=== PATIENT | female | born 1955 | race African-American/Black ===

== ENCOUNTER 2017-01-13 17:28 | Observation (INO) | payer MEDICAID, OTHER ==
[2017-01-13] MEDS ORDERED: Sodium Chloride 0.9% 2.5 ML Syringe FLUSH PRN (17:40)
[2017-01-13] MEDS ORDERED: Sodium Chloride 0.9% 10 ML Syringe FLUSH PRN (17:40)
[2017-01-13] MEDS ORDERED: Alum Hydrox/Mag Hydrox/Simeth 15 ML, Metoclopramide 5 MG, Lidocaine 2% 5 ML PO ONE ×3 (17:40)
[2017-01-13] MEDS ORDERED: Pantoprazole 40 MG Vial IVPUSH ONE (17:40)
[2017-01-13] MEDS ORDERED: Aspirin 81 MG Tab.Chew PO ONE (17:40)
[2017-01-13] MEDS ORDERED: Nitroglycerin 0.4 MG Tab.SL SL ONE (17:40)
--- NOTE | 2017-01-13 17:46 | EDM.PDOC ---
<Chela Sawant - Last Filed: 01/13/17 18:48> ED HPI GENERAL MEDICAL PROBLEM - General Chief Complaint: Chest Pain Stated Complaint: CHEST PAIN Time Seen by Provider: 01/13/17 17:31 - History of Present Illness INITIAL COMMENTS - FREE TEXT/NARRATIVE: HISTORY AND PHYSICAL: History of present illness: The patient is a 61-old female with a history of pulmonary embolus bilaterally 2 years ago when she was living in [place] who is currently off anticoagulation therapy who is unsure of why she had the PE presents to the ED with lower midsternal chest pain that radiates up the sternum that started this morning. Patient said she had a normal day yesterday and slept fine and she woke up and the discomfort started. She says she rates it as a 5/10 and she feels like it's more indigestion and it causes her to belch a lot. The patient says she has had a history over the last year of having increased belching so that component is not necessarily new. She's not nauseated or vomiting and she did have some diarrhea this morning but it is not black or bloody. She has no history of GI problems she has no family history for cardiac disease and no social history. The patient does state that for over the last 3 months she has had issues with eating certain foods with getting right-sided discomfort belching and indigestion. She says is mostly with fatty foods. She has never had her gallbladder evaluated nor she ever had cardiac workup done. She states she has no significant medical history such as hypertension or diabetes. The patient states she has not had diaphoresis or shortness of breath with this chest discomfort and it does not radiate to either side or to her abdomen. She denies any specific epigastric discomfort. She says that the pain that she's been having on the right side of her abdomen is in the middle part not high or low Patient specific we says that does not feel like her PE pain that she has had in the past. The patient says she has been taking a lot of Tums for the belching over the last few weeks and did take some earlier prior to coming here. Review of systems: As per history of present illness and below otherwise all systems reviewed and negative. Past medical history: As per history of present illness and as reviewed below otherwise noncontributory. Surgical history: As per history of present illness and as reviewed below otherwise noncontributory. Social history: No reported history of drug or alcohol abuse. Family history: As per history of present illness and as reviewed below otherwise noncontributory. Physical exam: Gen.: Well-developed well-nourished female who is nontoxic and speaking clearly in the ED with numerous belching episodes on my evaluation. Her vital signs have been reviewed by me. HEENT: Atraumatic, normocephalic, pupils reactive, negative for conjunctival pallor or scleral icterus, mucous membranes moist, throat clear, neck supple, nontender, trachea midline. Lungs: Clear to auscultation, breath sounds equal bilaterally, chest nontender. Heart: S1S2, regular, negative for clicks, rubs, or JVD. Abdomen: Soft, nondistended, with some minimal tenderness on deep palpation at the mid right abdomen without rebound or guarding but no specific epigastric or right upper quadrant tenderness. Negative for masses or hepatosplenomegaly. Negative for costovertebral tenderness. Bowel sounds are hypoactive Pelvis: Stable nontender. Genitourinary: Deferred. Rectal: Deferred. Extremities: Atraumatic, negative for cords or calf pain. Neurovascular unremarkable. No pedal edema or leg asymmetry Neuro: Awake, alert, oriented. Cranial nerves II through XII unremarkable. Cerebellum unremarkable. Motor and sensory unremarkable throughout. Exam nonfocal. Skin: Normal turgor no evidence of any rashes or lesions and no diaphoresis Diagnostics: EKG CBC CMP amylase lipase INR troponin chest x-ray Therapeutics: IV O2 monitor aspirin nitroglycerin sublingual GI cocktail Protonix nitro paste 184: Due to some unforeseen delays with medication dosing the patient is only now getting her medications. She still continues to belch and we are currently awaiting her workup. I discussed with her the possibility that she may need to stay in the hospital even if all the tests are negative and she is very uneasy about that. She would like to wait for the test results to come back before having a discussion about admission. After the medication she says her discomfort is a 1 to [address] Nitrop[address]. 1846: I preemptively have discussed this case with Dr. Dominguez our hospitalist. I told him that she wanted to wait for all the labs to come back but he says that if she is agreeable for observation he will accept her as an observation for rule out and then address any GI issues. Impression: Chest pain with intractable belching rule out ACS, history of right-sided abdominal pain and fatty food intolerance rule out biliary colic Definitive disposition and diagnosis as appropriate pending reevaluation and review of above. Epigastric Pain Score (Numeric/FACES): 5 ED ROS GENERAL - Review of Systems Review Of Systems: ROS reveals no pertinent complaints other than HPI. ED EXAM, GENERAL - Physical Exam Exam: See Below (See dictation) Course - Vital Signs Last Recorded V/S: Last Vital Signs Temp 36.0 C 01/13/17 19:21 Pulse 66 01/13/17 19:21 Resp 18 01/13/17 19:21 BP 118/79 01/13/17 19:21 Pulse Ox 96 01/13/17 19:21 - Orders/Labs/Meds Orders: Active Orders 24 hr Category Date Time Status Cardiac Monitoring [RC] . DIRECTED Care 01/13/17 17:39 Active EKG Documentation Completion [RC] STAT Care 01/13/17 17:39 Active Pulse Oximetry [RC] ASDIRECTED Care 01/13/17 17:39 Active Chest 1V Frontal [CR] Stat Exams 01/13/17 17:40 Taken Sodium Chloride 0.9% [Saline Flush] Med 01/13/17 17:40 Active 10 ml FLUSH ASDIRECTED PRN Sodium Chloride 0.9% [Saline Flush] Med 01/13/17 17:40 Active 2.5 ml FLUSH ASDIRECTED PRN Saline Lock Insert [OM.PC] Stat Oth 01/13/17 17:39 Ordered Medication Orders Sodium Chloride (Saline Flush) 10 ml FLUSH ASDIRECTED PRN PRN Reason: Keep Vein Open Last Admin: 01/13/17 18:45 Dose: 10 ml Sodium Chloride (Saline Flush) 2.5 ml FLUSH ASDIRECTED PRN PRN Reason: Keep Vein Open Last Admin: 01/13/17 18:45 Dose: 2.5 ml Labs: Laboratory Tests 01/13/17 01/13/17 01/13/17 Range/Units 18:28 18:28 18:28 WBC 6.54 (4.0-11.0) K/uL RBC 4.26 L (4.30-5.90) M/uL Hgb 13.2 (12.0-16.0) g/dL Hct 39.8 (36.0-46.0) % MCV 93.4 (80.0-98.0) fL MCH 31.0 (27.0-32.0) pg MCHC 33.2 (31.0-37.0) g/dL RDW Std Deviation 44.5 (28.0-62.0) fl RDW Coeff of [place] 13 (11.0-15.0) % Plt Count 265 (150-400) K/uL MPV 9.80 (7.40-12.00) fL Neut % (Auto) 48.9 (48.0-80.0) % Lymph % (Auto) 40.7 H (16.0-40.0) % [place] % (Auto) 8.6 (0.0-15.0) % Eos % (Auto) 1.5 (0.0-7.0) % Baso % (Auto) 0.3 (0.0-1.5) % Neut # (Auto) 3.2 (1.4-5.7) K/uL Lymph # (Auto) 2.7 H (0.6-2.4) K/uL [place] # (Auto) 0.6 (0.0-0.8) K/uL Eos # (Auto) 0.1 (0.0-0.7) K/uL Baso # (Auto) 0.0 (0.0-0.1) K/uL Nucleated RBC % 0.0 /100WBC Nucleated RBCs # 0 K/uL INR 0.99 (0.86-1.11) Sodium 141 (136-146) mmol/L Potassium 4.2 (3.5-5.1) mmol/L Chloride 106 (98-110) mmol/L Carbon Dioxide 27 (21-31) mmol/L BUN 13 (6.0-23.0) mg/dL Creatinine 0.9 (0.6-1.5) mg/dL Est Cr Clr Drug Dosing 67.05 mL/min Estimated GFR (MDRD) > 60.0 ml/min Glucose 83 (60-110) mg/dL Calcium 9.6 (8.8-10.8) mg/dL Total Bilirubin 0.3 (0.1-1.5) mg/dL AST 23 (5-40) IU/L ALT 31 (8-54) IU/L Alkaline Phosphatase 67 (40-150) Troponin I (0.0-0.29) NG/ML Total Protein 8.2 H (6.0-8.0) g/dL Albumin 4.4 (3.4-4.8) g/dL Globulin 3.8 H (2.0-3.5) g/dL Albumin/Globulin Ratio 1.2 L (1.3-2.8) Amylase 152 H (10-90) U/L Lipase 27 (7-80) U/L 01/13/17 Range/Units 18:28 WBC (4.0-11.0) K/uL RBC (4.30-5.90) M/uL Hgb (12.0-16.0) g/dL Hct (36.0-46.0) % MCV (80.0-98.0) fL MCH (27.0-32.0) pg MCHC (31.0-37.0) g/dL RDW Std Deviation (28.0-62.0) fl RDW Coeff of [place] (11.0-15.0) % Plt Count (150-400) K/uL MPV (7.40-12.00) fL Neut % (Auto) (48.0-80.0) % Lymph % (Auto) (16.0-40.0) % [place] % (Auto) (0.0-15.0) % Eos % (Auto) (0.0-7.0) % Baso % (Auto) (0.0-1.5) % Neut # (Auto) (1.4-5.7) K/uL Lymph # (Auto) (0.6-2.4) K/uL [place] # (Auto) (0.0-0.8) K/uL Eos # (Auto) (0.0-0.7) K/uL Baso # (Auto) (0.0-0.1) K/uL Nucleated RBC % /100WBC Nucleated RBCs # K/uL INR (0.86-1.11) Sodium (136-146) mmol/L Potassium (3.5-5.1) mmol/L Chloride (98-110) mmol/L Carbon Dioxide (21-31) mmol/L BUN (6.0-23.0) mg/dL Creatinine (0.6-1.5) mg/dL Est Cr Clr Drug Dosing mL/min Estimated GFR (MDRD) ml/min Glucose (60-110) mg/dL Calcium (8.8-10.8) mg/dL Total Bilirubin (0.1-1.5) mg/dL AST (5-40) IU/L ALT (8-54) IU/L Alkaline Phosphatase (40-150) Troponin I < 0.10 (0.0-0.29) NG/ML Total Protein (6.0-8.0) g/dL Albumin (3.4-4.8) g/dL Globulin (2.0-3.5) g/dL Albumin/Globulin Ratio (1.3-2.8) Amylase (10-90) U/L Lipase (7-80) U/L Meds: Medications Generic Name Dose Route Start Last Admin Trade Name Freq PRN Reason Stop Dose Admin Sodium Chloride 10 ml 01/13/17 17:40 01/13/17 18:45 Saline Flush FLUSH 10 ml ASDIRECTED PRN Administration Keep Vein Open Sodium Chloride 2.5 ml 01/13/17 17:40 01/13/17 18:45 Saline Flush FLUSH 2.5 ml ASDIRECTED PRN Administration Keep Vein Open Discontinued Medications Generic Name Dose Route Start Last Admin Trade Name Freq PRN Reason Stop Dose Admin Aspirin 324 mg 01/13/17 17:40 01/13/17 18:31 Aspirin PO 01/13/17 17:41 324 mg ONETIME ONE Administration Al Hydroxide/Mg Hydroxide 15 0 ml 01/13/17 17:40 01/13/17 18:31 ml/ Metoclopramide HCl 5 mg/ PO 01/13/17 17:41 25 each Lidocaine HCl 5 ml ONETIME ONE Administration Nitroglycerin 0.4 mg 01/13/17 17:40 01/13/17 18:30 Nitrostat SL 01/13/17 17:41 0.4 mg ONETIME ONE Administration Nitroglycerin 0.5 gm 01/13/17 18:43 01/13/17 18:50 Nitro-Bid 2% TOP 01/13/17 18:44 0.5 gm ONETIME ONE Administration Pantoprazole Sodium 40 mg 01/13/17 17:40 01/13/17 18:31 Protonix Iv IVPUSH 01/13/17 17:41 40 mg .BOLUS ONE Administration Departure - Departure Disposition: Refer to Observation Condition: Good Clinical Impression: Belching Chest pain Qualifiers: Chest pain type: other chest pain Qualified Code(s): R07.89 - Other chest pain - Discharge Information Referrals: PCP,None [Primary Care Provider] - Forms: ED Department Discharge <Blair Win - Last Filed: 01/13/17 19:27> Departure - Departure Time of Disposition: 19:27
[2017-01-13] MEDS ORDERED: Nitroglycerin 2% Oint 1 GM UD Packet TOP ONE (18:43)
[2017-01-13 18:57] LABS: CHLORIDE,CL 106 mmol/L (98-110); SODIUM,NA 141 mmol/L (136-146)
[2017-01-13] MEDS ORDERED: Morphine 2 MG/ML Syringe IVPUSH PRN (20:57)
[2017-01-13] MEDS ORDERED: Acetaminophen 325 MG Tab PO PRN (20:57)
[2017-01-13] MEDS: Sodium Chloride 0.9% 1,000 ML IV SCH (21:18)
[2017-01-13] MEDS: oxyCODONE 5 MG Tab PO PRN (21:19)
[2017-01-14 05:51] LABS: CHLORIDE,CL 109 mmol/L (98-110); SODIUM,NA 143 mmol/L (136-146)
[2017-01-14] MEDS ORDERED: Pantoprazole 40 MG Tab.CR PO SCH (08:30)
--- NOTE | 2017-01-14 08:52 | PCM.HP ---
H&P History of Present Illness - General Date of Service: 01/14/17 Admit Problem/Dx: Admission Diagnosis/Problem Admission Diagnosis/Problem Chest pain Source of Information: Patient History Limitations: Reports: No Limitations - History of Present Illness Initial Comments - Free Text/Narative: The patient is a 61-year-old lady who presented to the emergency department yesterday evening with a concern for midsternal chest pain. The patient had described the pain is burning and has been relieved by belching. Pain does not radiate into her jaw or left arm. The patient had a history of pulmonary emboli 2 years ago and had been on anticoagulation for an appropriate time frame. The patient has had epigastric pain and she says it feels like a "bubble". The patient otherwise has no specific aggravating or relieving factors although she says some foods can irritate her stomach such as orange juice and spicy foods. The patient has no significant medical history other than the pulmonary emboli and she is not taking other medications chronically. She has been in her usual state of health up until the present time. Onset of Symptoms: Reports: Today Duration of Symptoms: Reports: Day(s): Location: Reports: Chest, Abdomen Quality: Reports: Burning, Throbbing Severity: Moderate Improves with: Reports: Medication Worsens with: Reports: Eating Associated Symptoms: Reports: No Other Symptoms Epigastric Pain Score (Numeric/FACES): 5 - Related Data Allergies/Adverse Reactions: Allergies Allergy/AdvReac Type Severity Reaction Status Date / Time No Known Allergies Allergy Verified 01/13/17 19:32 Home Medications: Home Meds Omeprazole 20 mg PO DAILY cap.cr 01/14/17 [Rx] Simethicone 80 mg PO TIDAC tab.chew 01/14/17 [Rx] Past Medical History HEENT History: Reports: Hard of Hearing Respiratory History: Reports: PE Other Respiratory History: bilat PE's Gastrointestinal History: Reports: Gastritis, GERD Genitourinary History: Reports: None ACCOUNT CONTACT ASSOCIATE History: Reports: Other OB/BYN History: Hysterectomy Musculoskeletal History: Reports: None Neurological History: Reports: None Psychiatric History: Reports: None Hematologic History: Reports: None Immunologic History: Reports: None - Infectious Disease History Infectious Disease History: Reports: Chicken Pox, Measles Other Infectious Disease History: possible measles - Past Surgical History Female Surgical History: Reports: Hysterectomy Social & Family History - Family History Family Medical History: Noncontributory - Tobacco Use Smoking Status *Q: Never Smoker Second Hand Smoke Exposure: No - Caffeine Use Caffeine Use: Reports: Soda - Recreational Drug Use Recreational Drug Use: No H&P Review of Systems - Review of Systems: Review Of Systems: See Below General: Reports: Weakness HEENT: Reports: No Symptoms Pulmonary: Reports: No Symptoms Cardiovascular: Reports: Chest Pain (Burning, pressure) Gastrointestinal: Reports: Abdominal Pain, Other (Belching) Genitourinary: Reports: No Symptoms Musculoskeletal: Reports: No Symptoms Skin: Reports: No Symptoms Psychiatric: Reports: No Symptoms Neurological: Reports: No Symptoms Hematologic/Lymphatic: Reports: No Symptoms Immunologic: Reports: No Symptoms Exam - Exam Exam: See Below - Vital Signs Vital Signs: Last Vital Signs Temp 36.6 C 01/14/17 05:43 Pulse 83 01/14/17 05:43 Resp 20 01/14/17 05:43 BP 143/80 H 01/14/17 05:43 Pulse Ox 100 01/14/17 05:43 Weight: 85.1 kg - Exam Quality Assessment: No: Supplemental Oxygen General: Alert, Oriented, Cooperative HEENT: Conjunctiva Clear, EACs Clear, Mucosa Moist & [place], Nares Patent Neck: Supple, Trachea Midline Lungs: Clear to Auscultation, Normal Respiratory Effort Cardiovascular: Regular Rate, Regular Rhythm GI/Abdominal Exam: Normal Bowel Sounds, Soft, No Distention, Tender (Epigastrium ) Back Exam: Normal Inspection Extremities: No Pedal Edema Skin: Warm, Dry Neurological: Cranial Nerves Intact Neuro Extensive - Mental Status: Alert, Oriented x3 Psychiatric: Alert, Normal Affect, Normal Mood - Patient Data Lab Results Last 24 hrs: Laboratory Results - last 24 hr 01/14/17 01/14/17 01/14/17 Range/Units 05:13 05:13 05:13 WBC 4.95 (4.0-11.0) K/uL RBC 3.92 L (4.30-5.90) M/uL Hgb 11.9 L (12.0-16.0) g/dL Hct 36.6 (36.0-46.0) % MCV 93.4 (80.0-98.0) fL MCH 30.4 (27.0-32.0) pg MCHC 32.5 (31.0-37.0) g/dL RDW Std Deviation 43.7 (28.0-62.0) fl RDW Coeff of [place] 13 (11.0-15.0) % Plt Count 261 (150-400) K/uL MPV 9.30 (7.40-12.00) fL Neut % (Auto) 38.2 L (48.0-80.0) % Lymph % (Auto) 49.3 H (16.0-40.0) % [place] % (Auto) 9.3 (0.0-15.0) % Eos % (Auto) 2.8 (0.0-7.0) % Baso % (Auto) 0.4 (0.0-1.5) % Neut # (Auto) 1.9 (1.4-5.7) K/uL Lymph # (Auto) 2.4 (0.6-2.4) K/uL [place] # (Auto) 0.5 (0.0-0.8) K/uL Eos # (Auto) 0.1 (0.0-0.7) K/uL Baso # (Auto) 0.0 (0.0-0.1) K/uL Nucleated RBC % 0.0 /100WBC Nucleated RBCs # 0 K/uL Sodium 143 (136-146) mmol/L Potassium 4.1 (3.5-5.1) mmol/L Chloride 109 (98-110) mmol/L Carbon Dioxide 27 (21-31) mmol/L BUN 11 (6.0-23.0) mg/dL Creatinine 0.8 (0.6-1.5) mg/dL Est Cr Clr Drug Dosing 75.44 mL/min Estimated GFR (MDRD) > 60.0 ml/min Glucose 90 (60-110) mg/dL Calcium 9.1 (8.8-10.8) mg/dL Total Bilirubin 0.6 (0.1-1.5) mg/dL AST 19 (5-40) IU/L ALT 25 (8-54) IU/L Alkaline Phosphatase 56 (40-150) Total Protein 6.9 (6.0-8.0) g/dL Albumin 3.7 (3.4-4.8) g/dL Globulin 3.2 (2.0-3.5) g/dL Albumin/Globulin Ratio 1.2 L (1.3-2.8) H. pylori IgG Antibody NEGATIVE (NEG) Result Diagrams: 01/14/17 05:13 01/14/17 05:13 *Q Meaningful Use (ADM) - VTE *Q VTE Criteria *Q: - VTE Risk Assess *Q Each Risk Factor Represents 1 Point: Serious Lung Disease Including Pneumonia, Less than 1 Month Total Score 1 Point Risk Factors: 1 Each Risk Factor Represents 2 Points: Age 60 - 74 Years Total Score 2 Point Risk Factors: 2 Each Risk Factor Represents 3 Points: History Superficial Venous Thrombosis, DVT or PE Total Score 3 Point Risk Factors: 3 - Stroke *Q Stroke Criteria *Q: - AMI *Q AMI Criteria *Q: - Problem List (1) GERD with esophagitis SNOMED Code(s): 343899421 ICD Code: K21.0 - GASTRO-ESOPHAGEAL REFLUX DISEASE WITH ESOPHAGITIS Status : Chronic Priority: High (2) Gastritis SNOMED Code(s): 4983761 ICD Code: K29.70 - GASTRITIS, UNSPECIFIED, WITHOUT BLEEDING Status: Acute Priority: High Qualifiers: Gastritis type: other gastritis (3) Chest pain SNOMED Code(s): 71006956 ICD Code: R07.9 - CHEST PAIN, UNSPECIFIED Status: Acute Qualifiers: Chest pain type: other chest pain Qualified Code(s): R07.89 - Other chest pain; R07.8 - Other chest pain Problem List Initiated/Reviewed/Updated: Yes Orders Last 24hrs: Active Orders 24 hr Category Date Time Status Admission Status [Patient Status] [ADT] Routine ADT 01/13/17 20:30 Active Telemetry Monitoring [Cardiac Monitoring] [RC] Q8H Care 01/13/17 20:54 Active Regular Diet [DIET] Diet 01/14/17 Breakfast Active Abdomen Ltd [US] Routine Exams 01/14/17 08:30 Ordered Acetaminophen [Tylenol] Med 01/13/17 20:57 Active 650 mg PO Q6H PRN Morphine Med 01/13/17 20:57 Active 2 mg IVPUSH Q4H PRN Pantoprazole [ProTONIX] Med 01/14/17 08:30 Active 40 mg PO ACBREAKFAST Sodium Chloride 0.9% [Normal Saline] 1,000 ml Med 01/13/17 21:00 Active IV ASDIRECTED oxyCODONE Med 01/13/17 20:57 Active 5 mg PO Q4H PRN Medication Orders Acetaminophen (Tylenol) 650 mg PO Q6H PRN PRN Reason: Headache/mild pain Sodium Chloride (Normal Saline) 1,000 mls @ 75 mls/hr IV ASDIRECTED [facility] Last Admin: 01/13/17 21:18 Dose: 75 mls/hr Morphine Sulfate (Morphine) 2 mg IVPUSH Q4H PRN PRN Reason: Pain (severe 7-10) Oxycodone HCl (Oxycodone) 5 mg PO Q4H PRN PRN Reason: Pain (moderate 4-6) Last Admin: 01/13/17 21:19 Dose: 5 mg Pantoprazole Sodium (Protonix) 40 mg PO ACBREAKFAST [facility] Last Admin: 01/14/17 08:41 Dose: 40 mg Sodium Chloride (Saline Flush) 10 ml FLUSH ASDIRECTED PRN PRN Reason: Keep Vein Open Last Admin: 01/13/17 18:45 Dose: 10 ml Sodium Chloride (Saline Flush) 2.5 ml FLUSH ASDIRECTED PRN PRN Reason: Keep Vein Open Last Admin: 01/13/17 18:45 Dose: 2.5 ml Assessment/Plan Comment:: The patient is a 61-year-old lady who was admitted primarily out of concern for chest pain which was thought to be atypical. The patient says that the pain started suddenly yesterday. The patient does have a history of pulmonary emboli and had been treated for this in [place]. The patient does not have any shortness of breath. The patient apparently had been treated for the PE with anticoagulation and had been taken off of the anticoagulation and she had no further problem with this. Today he has described her chest pain in the middle of her chest, not radiating and described as burning or acid like. The patient has had no specific aggravating or but she has said that she's been belching very often and this actually relieves some of the pain that she is having. The patient has not been taking any chronic medications. She has been in her usual state of health up until the present time. And as a result of this the patient will be admitted to observation. She will have serial troponins done. Patient will be placed on proton pump inhibitor. Her pain will be controlled with use of morphine as necessary. The patient will be monitored and if she has improved significantly she will be appropriate for discharge home in the morning.
[2017-01-14] MEDS: oxyCODONE 5 MG Tab PO PRN (08:57)
[2017-01-14] MEDS: Sodium Chloride 0.9% 1,000 ML IV SCH (10:26)
--- NOTE | 2017-01-14 10:33 | CR ---
EXAM DATE: 01/13/17 PATIENT'S AGE: 61 Patient: RADHIKA SPENCE Facility: [place], [place] Site . Site : [id number] Study: XRay Chest [id number]/7/2017 7:10:09 PM Ordering Physician: Jese York Final Report: Indication: Chest pain Technique: Chest 1 view Comparison: None Findings/Impression: Cardiovascular and mediastinum: Borderline cardiomegaly which could be partially related to the AP technique. Lungs and pleural space: Lungs are clear. No sign of infiltrate or mass. No sign of pleural effusion. No pneumothorax. Bones and soft tissues: Thoracic scoliosis. Dictated by Med Ma MD @ 01/13/2017 7:42:57 PM Dictated by: Med Ma MD @ 01/13/2017 19:43:04 (Electronic Signature) Report Signed by Proxy. MODESTO
--- NOTE | 2017-01-14 16:02 | US ---
EXAMINATION: Right upper quadrant ultrasound HISTORY: Biliary colic COMPARISON: None TECHNIQUE: Grayscale and color Doppler images obtained of the right upper quadrant. FINDINGS: The visualized pancreas appears normal. The gallbladder wall thickness is normal. No perich olecystic fluid or shadowing gallstones. The common bile duct measures 3%. The right kidney measures 9.2 cm [id number] without evidence of hydronephrosis. Negative sonographic Landa[place]de sign. IMPRESSION: 1. Grossly unremarkable right upper quadrant ultrasound.
[2017-01-14 17:11] VITALS: BP 132/77
[2017-01-14] MEDS ORDERED: Simethicone 80 MG Tab.Chew PO SCH (17:30)
--- NOTE | 2017-01-14 17:58 | PCM.DCSUM1 ---
Discharge Summary - Hospital Course Free Text/Narrative:: The patient was admitted secondary to atypical chest pain. - Discharge Data Discharge Date: 01/14/17 Discharge Disposition: Home, Self-Care 01 Condition: Good - Discharge Diagnosis/Problem(s) (1) Belching SNOMED Code(s): 617987113 ICD Code: R14.2 - ERUCTATION Status: Acute (2) Chest pain SNOMED Code(s): 91691990 ICD Code: R07.9 - CHEST PAIN, UNSPECIFIED Status: Acute Qualifiers: Chest pain type: other chest pain Qualified Code(s): R07.89 - Other chest pain; R07.8 - Other chest pain - Patient Summary/Data Hospital Course: The patient is a 61-year-old lady who was admitted primarily out of concern for chest pain which was thought to be atypical. The patient says that the pain started suddenly yesterday. The patient does have a history of pulmonary emboli and had been treated for this in [place]. The patient does not have any shortness of breath. The patient apparently had been treated for the PE with anticoagulation and had been taken off of the anticoagulation and she had no further problem with this. Today he has described her chest pain in the middle of her chest, not radiating and described as burning or acid like. The patient has had no specific aggravating or but she has said that she's been belching very often and this actually relieves some of the pain that she is having. The patient has not been taking any chronic medications. She has been in her usual state of health up until the present time. And as a result of this the patient will be admitted to observation. She will have serial troponins done. Patient will be placed on proton pump inhibitor. Her pain will be controlled with use of morphine as necessary. The patient will be monitored and if she has improved significantly she will be appropriate for discharge home in the morning.The patient has had a workup which has consisted of monitoring, serial troponins and she had been treated with a proton pump inhibitor which seems to have helped her. The patient will be discharged home with a prescription for Nexium 40 mg by mouth daily as well as a prescription for simethicone. I've recommended that the patient continue with with her plan for diet and exercise. She been discharged with a diet as tolerated. The patient will also follow-up with primary care physician as scheduled. - Patient Instructions Diet: Heart Healthy Diet ([place]) - Discharge Plan Home Medications: Home Meds Omeprazole 20 mg PO DAILY cap.cr 01/14/17 [Rx] Simethicone 80 mg PO TIDAC tab.chew 01/14/17 [Rx] Patient Handouts: Heartburn, [id number], Chest Wall Pain, [id number], Simethicone chewable tablets, Omeprazole tablets (OTC) Referrals: Rajinder Dominguez DO [Physician] - 01/25/17 11:00 am - Patient Data Vitals - Most Recent: Last Vital Signs Temp 36.7 C 01/14/17 17:10 Pulse 60 01/14/17 17:10 Resp 16 01/14/17 17:10 BP 132/77 01/14/17 17:10 Pulse Ox 98 01/14/17 17:10 Weight - Most Recent: 85.1 kg I&O - Last 24 hours: Intake & Output 01/14/17 01/14/17 01/14/17 06:59 14:59 22:59 Intake Total 360 1632 Output Total 950 1150 Balance -590 482 Lab Results - Last 24 hrs: Laboratory Results - last 24 hr 01/14/17 01/14/17 01/14/17 Range/Units 05:13 05:13 05:13 WBC 4.95 (4.0-11.0) K/uL RBC 3.92 L (4.30-5.90) M/uL Hgb 11.9 L (12.0-16.0) g/dL Hct 36.6 (36.0-46.0) % MCV 93.4 (80.0-98.0) fL MCH 30.4 (27.0-32.0) pg MCHC 32.5 (31.0-37.0) g/dL RDW Std Deviation 43.7 (28.0-62.0) fl RDW Coeff of [place] 13 (11.0-15.0) % Plt Count 261 (150-400) K/uL MPV 9.30 (7.40-12.00) fL Neut % (Auto) 38.2 L (48.0-80.0) % Lymph % (Auto) 49.3 H (16.0-40.0) % [place] % (Auto) 9.3 (0.0-15.0) % Eos % (Auto) 2.8 (0.0-7.0) % Baso % (Auto) 0.4 (0.0-1.5) % Neut # (Auto) 1.9 (1.4-5.7) K/uL Lymph # (Auto) 2.4 (0.6-2.4) K/uL [place] # (Auto) 0.5 (0.0-0.8) K/uL Eos # (Auto) 0.1 (0.0-0.7) K/uL Baso # (Auto) 0.0 (0.0-0.1) K/uL Nucleated RBC % 0.0 /100WBC Nucleated RBCs # 0 K/uL Sodium 143 (136-146) mmol/L Potassium 4.1 (3.5-5.1) mmol/L Chloride 109 (98-110) mmol/L Carbon Dioxide 27 (21-31) mmol/L BUN 11 (6.0-23.0) mg/dL Creatinine 0.8 (0.6-1.5) mg/dL Est Cr Clr Drug Dosing 75.44 mL/min Estimated GFR (MDRD) > 60.0 ml/min Glucose 90 (60-110) mg/dL Calcium 9.1 (8.8-10.8) mg/dL Total Bilirubin 0.6 (0.1-1.5) mg/dL AST 19 (5-40) IU/L ALT 25 (8-54) IU/L Alkaline Phosphatase 56 (40-150) Total Protein 6.9 (6.0-8.0) g/dL Albumin 3.7 (3.4-4.8) g/dL Globulin 3.2 (2.0-3.5) g/dL Albumin/Globulin Ratio 1.2 L (1.3-2.8) H. pylori IgG Antibody NEGATIVE (NEG) Med Orders - Current: Current Medications Acetaminophen (Tylenol) 650 mg PO Q6H PRN PRN Reason: Headache/mild pain Last Admin: 01/14/17 12:04 Dose: 650 mg Sodium Chloride (Normal Saline) 1,000 mls @ 75 mls/hr IV ASDIRECTED [facility] Last Admin: 01/14/17 10:26 Dose: 75 mls/hr Morphine Sulfate (Morphine) 2 mg IVPUSH Q4H PRN PRN Reason: Pain (severe 7-10) Omeprazole (Omeprazole) 20 mg PO DAILY ANDREZ Oxycodone HCl (Oxycodone) 5 mg PO Q4H PRN PRN Reason: Pain (moderate 4-6) Last Admin: 01/14/17 08:57 Dose: 5 mg Pantoprazole Sodium (Protonix) 40 mg PO ACBREAKFAST ANDREZ Last Admin: 01/14/17 08:41 Dose: 40 mg Simethicone (Simethicone) 80 mg PO TIDAC ANDREZ Sodium Chloride (Saline Flush) 10 ml FLUSH ASDIRECTED PRN PRN Reason: Keep Vein Open Last Admin: 01/13/17 18:45 Dose: 10 ml Sodium Chloride (Saline Flush) 2.5 ml FLUSH ASDIRECTED PRN PRN Reason: Keep Vein Open Last Admin: 01/13/17 18:45 Dose: 2.5 ml Discontinued Medications Aspirin (Aspirin) 324 mg PO ONETIME ONE Stop: 01/13/17 17:41 Last Admin: 01/13/17 18:31 Dose: 324 mg Al Hydroxide/Mg Hydroxide 15 ml/ Metoclopramide HCl 5 mg/Lidocaine HCl 5 ml 0 ml PO ONETIME ONE Stop: 01/13/17 17:41 Last Admin: 01/13/17 18:31 Dose: 25 each Nitroglycerin (Nitrostat) 0.4 mg SL ONETIME ONE Stop: 01/13/17 17:41 Last Admin: 01/13/17 18:30 Dose: 0.4 mg Nitroglycerin (Nitro-Bid 2%) 0.5 gm TOP ONETIME ONE Stop: 01/13/17 18:44 Last Admin: 01/13/17 18:50 Dose: 0.5 gm Pantoprazole Sodium (Protonix Iv) 40 mg IVPUSH .BOLUS ONE Stop: 01/13/17 17:41 Last Admin: 01/13/17 18:31 Dose: 40 mg *Q Meaningful Use (DIS) - VTE *Q VTE Criteria *Q: - Stroke *Q Stroke Criteria *Q: - AMI *Q AMI Criteria *Q:
[2017-01-15] MEDS ORDERED: Omeprazole 20 MG Cap.CR PO SCH (17:24)
== END 2017-01-14 19:07 | disposition home or self-care (01) ==
LOC: MW.ED 17:28 → MW.MS 19:29
PROVIDERS: ADMIT Internal Medicine; ATTEND Internal Medicine
DX: R07.89 Other chest pain (principal); R14.2 Eructation; K21.0 Gastro-esophageal reflux disease with esophagitis; K29.70 Gastritis, unspecified, without bleeding; Z86.711 Personal history of pulmonary embolism; Z90.710 Acquired absence of both cervix and uterus
CPT/HCPCS: 36415; 71010; 76705; 80053; 82150; 83690; 84484; 85025; 85610; 86677; 93005; 96361; 96374; 99285; A9270; C9113; G0378; J7040; 99283

== ENCOUNTER 2017-02-19 17:46 | Emergency (ER) | payer SELFPAY ==
[2017-02-19] MEDS ORDERED: Ketorolac 60 MG/2 ML SDV IM ONE (18:33)
--- NOTE | 2017-02-19 18:33 | EDM.PDOC ---
ED HPI GENERAL MEDICAL PROBLEM - General Chief Complaint: Lower Extremity Injury/Pain Stated Complaint: PAIN/SWELLING BUMP RT LEG Time Seen by Provider: 02/19/17 18:10 Source of Information: Reports: Patient History Limitations: Reports: No Limitations - History of Present Illness INITIAL COMMENTS - FREE TEXT/NARRATIVE: HISTORY AND PHYSICAL: History of present illness: Patient is a 61-year-old female who presents to the emergency room with complaints of right groin pain that shoots down to the right calf over the past several weeks. Reports that she can feel a "lump" to the medial mid right calf. States she recently got a new job at [employer] and has been up on her feet all of bending and twisting frequently which is causing increased pain in the groin and calf. States her employer did give her a back brace for support which helped minimally. Patient states, "I think I have a circulation problem" and would like to be assesed for DVT. Skin is warm to touch, dry with palpable pedal pulses bilaterally. Currently wearing knee-high ABDON hose. During the physical examination she also complains of low back pain while asking her to complete some range of motion. She states this is also been causing her problems to perform her duties at work. When asked if she feels this back pain radiates down either glute she is unable to determine if it is, stating "I don't know". Denies any urinary or fecal incontinence. Denies any injury or trauma. Review of systems: As per history of present illness and below otherwise all systems reviewed and negative. Past medical history: As per history of present illness and as reviewed below otherwise noncontributory. Surgical history: As per history of present illness and as reviewed below otherwise noncontributory. Social history: No reported history of drug or alcohol abuse. Family history: As per history of present illness and as reviewed below otherwise noncontributory. Physical exam: Gen.: Toxic-appearing 61-year-old female. Well-developed and well-nourished. Able to speak in full sentences without shortness of breath. Alert and oriented HEENT: Atraumatic, normocephalic, pupils reactive, negative for conjunctival pallor or scleral icterus, mucous membranes moist, throat clear, neck supple, nontender, trachea midline. Lungs: Clear to auscultation, breath sounds equal bilaterally, chest nontender. Heart: S1S2, regular, negative for clicks, rubs, or JVD. Abdomen: Soft, nondistended, nontender. Negative for masses. Negative for costovertebral tenderness. Pelvis: Stable nontender. Genitourinary: Deferred. Rectal: Deferred. Extremities: Atraumatic, negative for cords or calf pain. Patient has full range of motion at the waist as she is able to flex and extend and twist side-to -side. C-spine and back were palpated without any tenderness, crepitus, or obvious deformities or step-offs. Neurovascular unremarkable. Strong pedal pulses bilaterally Skin: The right groin in which the patient is complaining of pain- I am unable to view any erythema or swelling. No lymphadenopathy. Area appears appropriate. There is a small rubbery nodule did to the right medial mid calf with deep palpation. Approximately the size of a eraser. Neuro: Awake, alert, oriented. Cranial nerves II through XII unremarkable. Cerebellum unremarkable. Motor and sensory unremarkable throughout. Exam nonfocal. Discussed with patient the possible diagnostics that we would be able to perform through the ER. Due to patient's vague description of her symptoms she elected to have an ultrasound as she is very concerned about a blood clot to that extremity. I did inform her that due to the trunk pedal pulses, good skin color, good capillary refill that this is unlikely. Lumbar spine x-ray shows curvature convex to the left. There is some disc space narrowing at L3-L4 and L5-S1 and anterior annular spurring at L1-L2. Venous Doppler shows no evidence of a deep vein thrombosis. Through patient history and diagnostic findings at this time I feel that he would benefit from a muscle relaxer and an anti-inflammatory. Struck to patient that she needs to follow-up with the primary care provider for further management of this pain. States she does see Dr. Dominguez and will follow up with him in the next week. Patient is agreeable to plan of care denies any further questions at this time. Diagnostics: Ultrasound, x-ray Therapeutics: Toradol Impression: Back Pain with sciatica Plan: 1. Used to take the Flexeril as prescribed. This medication may cause drowsiness. So please do not take it while needing to be functioning at work or driving. He may take kluy-kjy-[id number] ibuprofen 800 mg 3 times daily. Take this with food. Continue to use your supportive back brace and use proper body mechanics especially while at work. 2. As we discussed your back pain should be managed through Dr. Dominguez. If you having increased pain, you may need further evaluation such as MRI. 3. Return to the ED as needed and as discussed. Definitive disposition and diagnosis as appropriate pending reevaluation and review of above. Duration: Chronic lower extremities;lower back Pain Score (Numeric/FACES): 7 - Related Data Allergies Allergy/AdvReac Type Severity Reaction Status Date / Time No Known Allergies Allergy Verified 02/19/17 18:05 Home Meds: Home Meds Omeprazole 20 mg PO DAILY cap.cr 01/14/17 [Rx] Simethicone 80 mg PO TIDAC tab.chew 01/14/17 [Rx] Past Medical History - Past Health History Medical/Surgical History: Denies Medical/Surgical History HEENT History: Reports: Hard of Hearing Respiratory History: Reports: PE Other Respiratory History: bilat PE's Gastrointestinal History: Reports: Gastritis, GERD Genitourinary History: Reports: None BILINGUAL RECEPTIONIST History: Reports: Other OB/BYN History: Hysterectomy Musculoskeletal History: Reports: None Neurological History: Reports: None Psychiatric History: Reports: None Hematologic History: Reports: None Immunologic History: Reports: None - Infectious Disease History Infectious Disease History: Reports: Chicken Pox, Measles Other Infectious Disease History: possible measles - Past Surgical History Female Surgical History: Reports: Hysterectomy Social & Family History - Family History Family Medical History: Noncontributory - Tobacco Use Smoking Status *Q: Never Smoker Second Hand Smoke Exposure: No - Caffeine Use Caffeine Use: Reports: Soda - Recreational Drug Use Recreational Drug Use: No Review of Systems - Review of Systems Review Of Systems: ROS reveals no pertinent complaints other than HPI. ED EXAM, GENERAL - Physical Exam Exam: See Below (See dictation) Course - Vital Signs Last Recorded V/S: Last Vital Signs Temp 36.2 C 02/19/17 17:46 Pulse 72 02/19/17 17:46 Resp 18 02/19/17 17:46 BP 130/86 02/19/17 17:46 Pulse Ox 97 02/19/17 17:46 - Orders/Labs/Meds Orders: Active Orders 24 hr Category Date Time Status Lumbar Spine 2 or 3V [CR] Stat Exams 02/19/17 18:20 Taken Venous Doppler Lwr Ext Rt [US] Stat Exams 02/19/17 18:21 Taken Meds: Medications Discontinued Medications Generic Name Dose Route Start Last Admin Trade Name Jorge Alberto PRN Reason Stop Dose Admin Ketorolac Tromethamine 60 mg 02/19/17 18:33 02/19/17 19:01 Toradol IM 02/19/17 18:34 60 mg ONETIME ONE Administration Departure - Departure Time of Disposition: 19:44 Disposition: Home, Self-Care 01 Clinical Impression: Back pain with sciatica - Discharge Information Referrals: Rajinder Dominguez DO [Primary Care Provider] - Forms: ED Department Discharge Additional Instructions: My general discharge The following information is given to patients seen in the emergency department who are being discharged to home. This information is to outline your options for follow-up care. We provide all patients seen in our emergency department with a follow-up referral. The need for follow-up, as well as the timing and circumstances, are variable depending upon the specifics of your emergency department visit. If you don't have a primary care physician on staff, we will provide you with a referral. We always advise you to contact your personal physician following an emergency department visit to inform them of the circumstance of the visit and for follow-up with them and/or the need for any referrals to a consulting specialist. The emergency department will also refer you to a specialist when appropriate. This referral assures that you have the opportunity for follow-up care with a specialist. All of these measure are taken in an effort to provide you with optimal care, which includes your follow-up. Under all circumstances we always encourage you to contact your private physician who remains a resource for coordinating your care. When calling for follow-up care, please make the office aware that this follow-up is from your recent emergency room visit. If for any reason you are refused follow-up, please contact the [facility] Emergency Department at and asked to speak to the emergency department charge nurse. [facility] [address] [place] [id number] 1. Used to take the Flexeril as prescribed. This medication may cause drowsiness. So please do not take it while needing to be functioning at work or driving. He may take [id number] ibuprofen 800 mg 3 times daily. Take this with food. Continue to use your supportive back brace and use proper body mechanics especially while at work. 2. As we discussed your back pain should be managed through Dr. Dominguez. If you having increased pain, you may need further evaluation such as MRI. 3. Return to the ED as needed and as discussed. - My Orders Last 24 Hours: My Active Orders 02/19/17 18:20 Lumbar Spine 2 or 3V [CR] Stat 02/19/17 18:21 Venous Doppler Lwr Ext Rt [US] Stat - Assessment/Plan Last 24 Hours: My Active Orders 02/19/17 18:20 Lumbar Spine 2 or 3V [CR] Stat 02/19/17 18:21 Venous Doppler Lwr Ext Rt [US] Stat
[2017-02-19 20:03] VITALS: BP 135/79
--- NOTE | 2017-02-21 11:29 | CR ---
EXAM DATE: 02/19/17 PATIENT'S AGE: 61 Patient: RADHIKA SPENCE Facility: [place], [place] Site . Site : 1955 Study: XRay Spine Lumbar [id number] 6:47:24 PM Ordering Physician: Doctor Sequeira Final Report: Lumbar spine. 3 VIEWS INDICATION: Pain. IMPRESSION: The frontal view shows a broad-based curvature convex to the left. Disc space narrowing at L3-L4 and L5-S1. Hypertrophic changes in the lumbar facet joints. Anterior annular spurring at L1 and L2. No spondylolisthesis. Dictated by Alex House MD @ Feb 19 2017 7:03PM (Electronic Signature) Report Signed by Proxy. MODESTO
--- NOTE | 2017-02-21 11:31 | US ---
EXAM DATE: 02/19/17 PATIENT'S AGE: 61 Patient: RADHIKA SPENCE Facility: [place], [place] Site . Site : 1955 Study: US Extremity Right [id number]/[id number] 7:08:42 PM Ordering Physician: Doctor Sequeira Final Report: INDICATION: Pain and swelling right lower extremity. TECHNIQUE: Ultrasound venous duplex lower right extremity. Compression venous exam was performed using ewing-scale, color Doppler, and spectral Doppler imaging. FINDINGS: Sonographic imaging demonstrates the right common femoral, deep femoral, superficial femoral, popliteal, posterior tibial and greater saphenous and the contralateral left common femoral veins to be fully compressible with normal color Doppler blood flow. IMPRESSION: No sign of deep venous thrombosis. Dictated by Alex House MD @ Feb 19 2017 7:29PM (Electronic Signature) Report Signed by Proxy. MODESTO
== END 2017-02-19 20:06 | disposition home or self-care (01) ==
LOC: MW.ED 17:46
DX: M54.40 Lumbago with sciatica, unspecified side (principal); K21.9 Gastro-esophageal reflux disease without esophagitis; Z79.899 Other long term (current) drug therapy; Z90.710 Acquired absence of both cervix and uterus; Z86.711 Personal history of pulmonary embolism
CPT/HCPCS: 72100; 93971; 96372; 99284; J1885; 99283

== ENCOUNTER 2017-04-16 18:15 | Emergency (ER) | payer SELFPAY ==
[2017-04-16] MEDS ORDERED: Ketorolac 60 MG/2 ML SDV IM ONE (19:49)
--- NOTE | 2017-04-16 19:54 | EDM.PDOC ---
ED HPI GENERAL MEDICAL PROBLEM - General Chief Complaint: Lower Extremity Injury/Pain Stated Complaint: PAIN LEGS Time Seen by Provider: 04/16/17 19:29 - History of Present Illness INITIAL COMMENTS - FREE TEXT/NARRATIVE: HISTORY AND PHYSICAL: History of present illness: The patient is a 61-year-old female who presents with complaints of bilateral pain that starts at her groin and goes anteriorly down bilateral legs to the mid lower leg. She has had the right-sided pain since February as she was seen here in the emergency department for similar and she says she followed up in the clinic but she doesn't have insurance and is unable to continue with a follow-up. The patient says there is no weakness in her legs and his had no recent traumas and she feels like it's in the flash not in the bones. She's able to do her work at [employer] and says that at the end of the day she feels it was [facility]. She has some chronic right lower back pain that she says she has had for years that is not new or different. She' s had no bowel or bladder disturbances no other systemic complaints and has only tried some Aleve for pain. Review of systems: As per history of present illness and below otherwise all systems reviewed and negative. Past medical history: As per history of present illness and as reviewed below otherwise noncontributory. Surgical history: As per history of present illness and as reviewed below otherwise noncontributory. Social history: No reported history of drug or alcohol abuse. Family history: As per history of present illness and as reviewed below otherwise noncontributory. Physical exam: General: Well-developed well-nourished female who moves easily in the ED. Vital signs reviewed by me. I discussed with her blood pressure and the need for follow-up for that. HEENT: Atraumatic, normocephalic, negative for conjunctival pallor or scleral icterus, mucous membranes moist, throat clear, neck supple, nontender, trachea midline. Lungs: Clear to auscultation, breath sounds equal bilaterally, chest nontender. Heart: S1S2, regular rate and rhythm no overt murmurs Abdomen: Soft, nondistended, nontender. NABS Pelvis: Stable nontender. Genitourinary: Deferred. Rectal: There is normal perianal sensation and squeeze and push. Extremities: Atraumatic, negative for cords or calf pain. Neurovascular unremarkable. Full range of motion without defects or deficits and none of the compartments of the lower extremities are swollen erythematous or tender. There are no bony defects or deformities. Neuro: Awake, alert, oriented. Cranial nerves II through XII unremarkable. Cerebellum unremarkable. Motor and sensory unremarkable throughout. Exam nonfocal. Patellar reflexes are +2 over 4 bilaterally. Patient has a negative straight leg rise bilaterally. Dorsi and plantar flexion is intact 5/5 inclusive of the great toe as is inversion and eversion of the feet. Back: There are no midline tenderness step-offs in his defects of the thoracic or lumbar spine and no discrete buttocks tenderness or pelvis tenderness Diagnostics: [] Therapeutics: Toradol Patient had discussed that from the ED it is very difficult to determine the etiology of this discomfort but she does not meet criteria for any emergent imaging at this time and will need follow-up in the clinic. I have told her that I would give her some Toradol here as well as a small prescription for gabapentin to see if this is more neuropathic pain and I've advised close follow -up. Impression: Bilateral leg pain rule out sciatica Definitive disposition and diagnosis as appropriate pending reevaluation and review of above. - Related Data Allergies Allergy/AdvReac Type Severity Reaction Status Date / Time No Known Allergies Allergy Verified 02/19/17 18:05 Home Meds: Home Meds Omeprazole 20 mg PO DAILY cap.cr 01/14/17 [Rx] Simethicone 80 mg PO TIDAC tab.chew 01/14/17 [Rx] Past Medical History - Past Health History Medical/Surgical History: Denies Medical/Surgical History HEENT History: Reports: Hard of Hearing Cardiovascular History: Reports: High Cholesterol, SOB on Exertion, Other (See Below) Other Cardiovascular History: dizziness on and off Respiratory History: Reports: PE, SOB Other Respiratory History: bilat PE's Gastrointestinal History: Reports: Gastritis, GERD Genitourinary History: Reports: None 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 OB/BYN History: Hysterectomy Musculoskeletal History: Reports: None Neurological History: Reports: None Psychiatric History: Reports: None Hematologic History: Reports: None Immunologic History: Reports: None - Infectious Disease History Infectious Disease History: Reports: Chicken Pox, Measles Other Infectious Disease History: possible measles - Past Surgical History Female Surgical History: Reports: Hysterectomy Social & Family History - Family History Family Medical History: Noncontributory - Tobacco Use Smoking Status *Q: Never Smoker Second Hand Smoke Exposure: No - Caffeine Use Caffeine Use: Reports: Soda - Recreational Drug Use Recreational Drug Use: No Review of Systems - Review of Systems Review Of Systems: ROS reveals no pertinent complaints other than HPI. ED EXAM, GENERAL - Physical Exam Exam: See Below (Dictation) Course - Vital Signs Last Recorded V/S: Last Vital Signs Temp 37.4 C 04/16/17 19:37 Pulse 73 04/16/17 19:37 Resp 19 04/16/17 19:37 BP 171/100 H 04/16/17 19:37 Pulse Ox 97 04/16/17 19:25 - Orders/Labs/Meds Meds: Medications Discontinued Medications Generic Name Dose Route Start Last Admin Trade Name Freq PRN Reason Stop Dose Admin Ketorolac Tromethamine 60 mg 04/16/17 19:49 Toradol IM 04/16/17 19:50 ONETIME ONE Departure - Departure Time of Disposition: 19:53 Disposition: Home, Self-Care 01 Condition: Good Clinical Impression: Bilateral leg pain - Discharge Information Referrals: PCP,None [Primary Care Provider] - Additional Instructions: The following information is given to patients seen in the emergency department who are being discharged to home. This information is to outline your options for follow-up care. We provide all patients seen in our emergency department with a follow-up referral. The need for follow-up, as well as the timing and circumstances, are variable depending upon the specifics of your emergency department visit. If you don't have a primary care physician on staff, we will provide you with a referral. We always advise you to contact your personal physician following an emergency department visit to inform them of the circumstance of the visit and for follow-up with them and/or the need for any referrals to a consulting specialist. The emergency department will also refer you to a specialist when appropriate. This referral assures that you have the opportunity for followup care with a specialist. All of these measure are taken in an effort to provide you with optimal care, which includes your followup. Under all circumstances we always encourage you to contact your private physician who remains a resource for coordinating your care. When calling for followup care, please make the office aware that this follow-up is from your recent emergency room visit. If for any reason you are refused follow-up, please contact the [facility] emergency department at and ask to speak to the emergency department charge nurse. [facility] Primary care- Internal Medicine and Family [address] [address] Please try the gabapentin yet been prescribed for pain as well as over-the- counter Aleve or ibuprofen. Please call and follow-up with one of our clinic providers as you will need further care and evaluation of this problem. Return to ER as needed and as discussed
[2017-04-16 20:18] VITALS: BP 157/98
== END 2017-04-16 20:20 | disposition home or self-care (01) ==
LOC: MW.ED 18:15
DX: M79.604 Pain in right leg (principal); M79.605 Pain in left leg; Z79.899 Other long term (current) drug therapy
CPT/HCPCS: 96372; 99283; J1885

== ENCOUNTER 2018-11-03 08:23 | Day surgery (SDC) | payer MEDICAID ==
[~2018-11-03 08:23] MED LIST: Lactated Ringers 1,000 ML IV SCH
--- NOTE | 2018-11-03 09:14 | PCM.PREANE ---
Preanesthetic Assessment - Anesthesia/Transfusion/Family Hx Anesthesia History: Prior Anesthesia Without Reaction Family History of Anesthesia Reaction: No Transfusion History: No Prior Transfusion(s) - Review of Systems General: No Symptoms Pulmonary: No Symptoms Cardiovascular: No Symptoms Gastrointestinal: No Symptoms Neurological: No Symptoms Other: Reports: None - Physical Assessment NPO Status Date: 11/02/18 Height: 5 ft 10 in Weight: 88.904 kg ASA Class: 2 Mental Status: Alert & Oriented x3 Airway Class: Mallampati = 2 Dentition: Reports: Normal Dentition ROM/Head Extension: Full Lungs: Clear to Auscultation, Normal Respiratory Effort Cardiovascular: Regular Rate, Regular Rhythm - Allergies Allergies/Adverse Reactions: Allergies Allergy/AdvReac Type Severity Reaction Status Date / Time No Known Allergies Allergy Verified 11/01/18 10:08 - Blood Blood Available: No - Anesthesia Plan Pre-Op Medication Ordered: None - Acknowledgements Anesthesia Type Planned: General Anesthesia Pt an Appropriate Candidate for the Planned Anesthesia: Yes Alternatives and Risks of Anesthesia Discussed w Pt/Guardian: Yes Pt/Guardian Understands and Agrees with Anesthesia Plan: Yes Additional Comments: PMH: htn, gerd, hld, hx of PE PLAN: tiva PreAnesthesia Questionnaire - Past Health History Medical/Surgical History: Denies Medical/Surgical History HEENT History: Reports: Allergic Rhinitis, Other (See Below) Other HEENT History: uses reading glasses Cardiovascular History: Reports: High Cholesterol, Hypertension Other Cardiovascular History: dizziness on and off Respiratory History: Reports: PE Other Respiratory History: was told she had blood clots in both lungs [place]- took medication but not Warfarin Gastrointestinal History: Reports: GERD Genitourinary History: Reports: None 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 OB/BYN History: Hysterectomy Musculoskeletal History: Reports: Back Pain, Chronic Neurological History: Reports: None Psychiatric History: Reports: None Hematologic History: Reports: None Immunologic History: Reports: None Dermatologic History: Reports: Other (See Below) Other Dermatologic History: occasional skin irritation from allergies - Infectious Disease History Infectious Disease History: Reports: Chicken Pox, Measles Other Infectious Disease History: possible measles - Past Surgical History Female Surgical History: Reports: Hysterectomy - SUBSTANCE USE Smoking Status *Q: Never Smoker Recreational Drug Use History: No - HOME MEDS Home Medications: Home Meds Diclofenac Sodium [Voltaren 1% Gel] 1 applic TOP TID PRN 11/01/18 [History] Hydrochlorothiazide [Microzide] 12.5 mg PO DAILY 11/01/18 [History] Lisinopril 20 mg PO DAILY 11/01/18 [History] Mometasone Furoate [Nasonex] 1 spray NASBOTH DAILY 11/01/18 [History] Pantoprazole Sodium [Protonix] 40 mg PO DAILY 11/01/18 [History] atorvaSTATin Calcium [Atorvastatin Calcium] 20 mg PO BEDTIME 11/01/18 [History] - CURRENT (IN HOUSE) MEDS Current Meds: Current Medications Lactated Ringer's (Ringers, Lactated) 1,000 mls @ 125 mls/hr IV ASDIRECTED ANDREZ
[2018-11-03] MEDS ORDERED: Midazolam 1 MG/ML 2 ML SDV ONE (09:33)
[2018-11-03] MEDS ORDERED: Propofol 200 MG/20 ML SDV ONE (09:33)
[2018-11-03] MEDS ORDERED: Benzocaine 20% Topical Spray UD MUCMEM ONE (09:36)
[2018-11-03] MEDS ORDERED: Glycopyrrolate 0.2 MG/ML SDV ONE (10:05)
--- NOTE | 2018-11-03 10:21 | PCM48HPAN ---
Post Anesthesia Note - EVALUATION WITHIN 48HRS OF ANESTHETIC Vital Signs in Normal Range: Yes Patient Participated in Evaluation: Yes Respiratory Function Stable: Yes Airway Patent: Yes Cardiovascular Function Stable: Yes Hydration Status Stable: Yes Pain Control Satisfactory: Yes Nausea and Vomiting Control Satisfactory: Yes Mental Status Recovered: Yes Resp Rate: 16
--- NOTE | 2018-11-03 10:21 | PCM.POSTAN ---
POST ANESTHESIA ASSESSMENT - MENTAL STATUS Mental Status: Alert, Oriented - RESPIRATORY Respiratory Status: Respiratory Rate WNL, Airway Patent, O2 Saturation Stable - CARDIOVASCULAR CV Status: Pulse Rate WNL, Blood Pressure Stable - GASTROINTESTINAL GI Status: No Symptoms - POST OP HYDRATION Hydration Status: Adequate & Stable
--- NOTE | 2018-11-03 10:25 | PCM.OPNOTE ---
- General Post-Op/Procedure Note Date of Surgery/Procedure: 11/03/18 Operative Procedure(s): egd w bx. colonoscopy Findings: see [id number] and [id number] Pre Op Diagnosis: black tarry stool and gerd Post-Op Diagnosis: Same Anesthesia Technique: Moderate Sedation Primary Surgeon: Fabrizio Collado Pathology: egd bx Complications: None Condition: Good
--- NOTE | 2018-11-03 11:10 | OR ---
SURGEON: Fabrizio Collado MD DATE OF PROCEDURE: 11/03/2018 PREOPERATIVE DIAGNOSES: Black tarry stool and abdominal pain. POSTOPERATIVE DIAGNOSES: Esophagogastroduodenoscopy diagnosis of acid reflux and colonoscopy diagnosis is hemorrhoid. PROCEDURES PERFORMED: Esophagogastroduodenoscopy with biopsy and colonoscopy. DESCRIPTION OF PROCEDURE: EGD: The patient was taken to the endoscopy room, and with the WATCH CRYSTAL GRINDER, Diprivan was administered. A well-lubricated EGD scope was gently inserted through the oropharynx, down the esophagus, passing through the gastroesophageal junction, into the stomach. The mucosa was examined upon the passage. Any etiology will be noted. Once in the stomach, we continued to advance to the distal antrum, passed through the pylorus into the second portion of the duodenum. Again, the mucosa was examined for any abnormality and etiology. The scope was then retrieved back to the stomach and then retroflexed to look at the fundus of the stomach. If a biopsy was indicated, we will biopsy the antrum, body, and gastroesophageal junction. The air will be sucked out while the scope is retrieved to reduce the patient's discomfort. The patient tolerated the procedure well. There were no intraoperative complications. Dr. Collado was present through the whole procedure. Prior to surgery, a time-out had been called, the patient identified, procedure identified and antibiotic administered. The patient was taken to the endoscopy room. A time out was called, patient identified, and procedure identified. Diprivan was then administrated. Patient went from awake to sleep, hearing doctor talking or door closing is normal. Perineum inspection and digital examination were then performed. A well- lubricated colonoscope was gently inserted through the rectum, advanced past the rectosigmoid junction, the descending colon, splenic flexure, transverse colon, hepatic flexure, ascending colon, arrived to the cecum. Cecum was identified as dictated in the finding. Then the scope was carefully withdrawn while attention was paid to the mucosal surface for any abnormality. Air will be sucked out during the scope withdrawal. At the rectum, retroflexed to examine any rectal diseases, fistula or hemorrhoids. Patient tolerated procedure well. There were no intraoperative complications, and Dr. Collado was present throughout the whole procedure. FINDINGS: EGD findings: 1. The patient is easily sedated with WATCH CRYSTAL GRINDER and Diprivan, the patient is soundly snoring. 2. Proximal esophagus and oropharynx are grossly normal in appearance. Distal esophagus at GE junction at 40 shows mild salmon-colored change consistent with acid reflux. Stomach rugae are normal in appearance and antrum is normal and duodenum is grossly normal. Retroflexed look at the fundus of stomach, the patient has a very very small mild hiatal hernia. Biopsy done at antrum, body, GE junction at 40 and sucked out the gas while scope pulling out. The patient has a lot of bile in the duodenum and some bile in the stomach. There is no food or blood or ulcer throughout the whole study. Colonoscopy findings: 1. The patient is easily sedated with WATCH CRYSTAL GRINDER and Diprivan, the patient is soundly snoring. 2. The patient's bowel prep was average. Large amount of liquid stool, no semi-formed stool. 3. Colon is rather straightforward. Cecum is indicated by ileocecal fold, one- to-one indentation, and appendiceal orifice. Light emittance is not observed due to body habitus. Mucosa examined upon scope pulling out with a large amount irrigation. The patient does not have diverticulosis, polyp, mass, growth, inflammation, stricture, ulceration, AV malformation, bleeding, none of those. The patient has some mild external hemorrhoids and mild internal hemorrhoids. The patient would benefit from repeat colonoscopy in 10 years from today or if clinically indicated otherwise. As always, thank you for the kind referral. THOMAS / ROSALINDA /[id number]
[2018-11-03 11:14] VITALS: BP 138/77
--- NOTE | 2018-11-03 11:29 | OR ---
SURGEON: Fabrizio Collado MD DATE OF PROCEDURE: ADDENDUM: During the colonoscopy, the patient was consistently vasovagal, bradycardic, down to 40 and 39. I had to stopped scope and sucked out the gas. After the gas came up, heart rate went up, but when the gas resumed, she was vasovagal again. During the whole procedure, she did not drop her blood pressure. It was just that her heart rate became bradycardic, and she got some medications for that, and afterwards, she is doing very well. THOMAS TELLEZ /[id number] [place]
== END 2018-11-03 12:17 | disposition home or self-care (01) ==
LOC: MW.SDS 08:23
PROVIDERS: ATTEND Surgery
DX: K21.0 Gastro-esophageal reflux disease with esophagitis (principal); K29.00 Acute gastritis without bleeding; K29.50 Unspecified chronic gastritis without bleeding; K44.9 Diaphragmatic hernia without obstruction or gangrene; K64.4 Residual hemorrhoidal skin tags; K64.8 Other hemorrhoids; R19.5 Other fecal abnormalities; I10 Essential (primary) hypertension; E78.00 Pure hypercholesterolemia, unspecified; Z79.899 Other long term (current) drug therapy
CPT/HCPCS: A9270-GY; J2001; J2250; J2704; J3490; J7120